=== PATIENT | female | born 1980 | race Caucasian/White ===

== ENCOUNTER 2020-11-28 16:14 | Emergency (ER) | payer OTHER ==
[2020-11-28] MEDS ORDERED: EPINEPHrine 1 MG/ML VIAL ONE (16:31)
[2020-11-28] MEDS ORDERED: Famotidine/PF 20 mg/2ml Vial ONE (16:31)
[2020-11-28] MEDS ORDERED: Dexamethasone 10 MG/ML VIAL ONE (16:31)
[2020-11-28] MEDS ORDERED: predniSONE 20 MG TAB ONE (16:31)
== END 2020-11-28 18:12 | disposition home or self-care (01) ==
LOC: ERS 16:14
DX: T63.441A Toxic effect of venom of bees, accidental (unintentional), initial encounter (principal)
CPT/HCPCS: 96372; 96374; 96375; J0171; J1100; J7512; S0028